=== PATIENT | female | born 1980 | race Caucasian/White ===

== ENCOUNTER 2022-09-12 06:27 | Day surgery (SDC) | payer OTHER ==
[~2022-09-12] VITALS: Ht 160 cm; Wt 63.5 kg
[2022-09-12 06:59] LABS: HCG,QUAL RESULT NEGATIVE (NEGATIVE)
[2022-09-12] MEDS ORDERED: BUPIVACAINE /EPINEPHRINE/PF 0.5% 30 ML VIAL INJ ONE (08:30)
[2022-09-12] MEDS ORDERED: ceFAZolin SODIUM 2 GM VIAL ONE (08:30)
[2022-09-12] MEDS ORDERED: SEVOFLURANE 15 MIN GAS INH ONE (08:30)
[2022-09-12] MEDS ORDERED: PROPOFOL 200MG/ 20ML VIAL (DIPRIVAN) IV ONE (08:30)
[2022-09-12] MEDS ORDERED: LR 1,000 ML IV.SOLN IV ONE (08:30)
[2022-09-12] MEDS ORDERED: ONDANSETRON HCL 4 MG/2 ML VIAL ONE (08:30)
[2022-09-12] MEDS ORDERED: METOCLOPRAMIDE HCL 10 MG/2 ML VIAL ONE (08:30)
[2022-09-12] MEDS ORDERED: ROCURONIUM BROMIDE 10 MG/ML (ZEMURON) ONE (08:30)
[2022-09-12] MEDS ORDERED: SUGAMMADEX SODIUM 200 MG/2 ML VIAL IV ONE (08:30)
[2022-09-12] MEDS ORDERED: MIDAZOLAM HCL 2 MG/2 ML VIAL (VERSED) ONE (08:30)
[2022-09-12] MEDS ORDERED: NS 1000 ML IV.SOLN IV ONE (08:30)
[2022-09-12] MEDS ORDERED: fentaNYL CITRATE/PF 100 MCG/2 ML AMP ONE (08:30)
[2022-09-12] MEDS ORDERED: ONDANSETRON HCL 4 MG/2 ML VIAL IVP PRN (09:30)
[2022-09-12] MEDS ORDERED: HYDROmorphone 1 MG/ML INJ. CARTRIDGE IVP PRN (09:30)
[2022-09-12] MEDS ORDERED: MEPERIDINE HCL/PF 25 MG/ML DISP.SYRIN IVP PRN (09:30)
[2022-09-12] MEDS ORDERED: KETOROLAC TROMETHAMINE 30 MG VIAL IVP PRN (09:30)
[2022-09-12] MEDS ORDERED: MEPERIDINE HCL/PF 25 MG/ML DISP.SYRIN ONE (09:36)
[2022-09-12] MEDS ORDERED: KETOROLAC TROMETHAMINE 30 MG VIAL ONE (10:11)
[2022-09-12 11:00] VITALS: BP_SYST 115
== END 2022-09-12 12:45 | disposition home or self-care (01) ==
LOC: SDS 06:27 → SMU 06:28 → SDS 12:45
PROVIDERS: ATTEND Obstetrics & Gynecology
DX: Z30.2 Encounter for sterilization (principal); E78.5 Hyperlipidemia, unspecified; G43.909 Migraine, unspecified, not intractable, without status migrainosus; Z20.822 Contact with and (suspected) exposure to COVID-19; Z79.899 Other long term (current) drug therapy
CPT/HCPCS: 87081; 58670; 84703; 36415; 87426; J3490 ×2; J1885; J2765; J3465; J2405; J2704; J3010; J2175; J7120; J7030